=== PATIENT | female | born 1980 | race Caucasian/White ===

== ENCOUNTER 2021-12-06 13:55 | Emergency (ER) | payer OTHER ==
[~2021-12-06 13:55] MED LIST: CIPROFLOXACIN500 M3 PO; NOHOMEMEDICATIONS; NORCO 5-325 TA1 EACH PO; ZOFRAN 4 MG ORAL4 MG PO
== END 2021-12-06 15:16 | disposition home or self-care (01) ==
LOC: M.ERS 13:55
DX: Z89.022 Acquired absence of left finger(s) (principal); I10 Essential (primary) hypertension; Z98.890 Other specified postprocedural states; Z79.899 Other long term (current) drug therapy